=== PATIENT | male | born 1945 | race American Indian/Alaskan Native ===

== ENCOUNTER 2017-10-15 07:27 | Day surgery (SDC) | payer MEDICARE, OTHER ==
[2017-10-15] MEDS ORDERED: Lactated Ringer's 1,000 ML IV ONE (08:30)
[2017-10-15 09:09] VITALS: BMI 25.2
[2017-10-15] MEDS ORDERED: Propofol 10 mg/ml Inj (20 ML) ONE (09:57)
[2017-10-15 10:17] VITALS: PULSE 75; TEMP 98; O2SAT 100
[2017-10-15 10:29] VITALS: BP 114/68; RESP 18
== END 2017-10-15 10:30 | disposition home or self-care (01) ==
LOC: H.ENDO 07:27
PROVIDERS: ATTEND Internal Medicine Gastroenterology
DX: R10.84 Generalized abdominal pain (principal); I25.10 Atherosclerotic heart disease of native coronary artery without angina pectoris; I11.0 Hypertensive heart disease with heart failure; I50.9 Heart failure, unspecified; Z21 Asymptomatic human immunodeficiency virus [HIV] infection status; K64.8 Other hemorrhoids; K57.30 Diverticulosis of large intestine without perforation or abscess without bleeding
CPT/HCPCS: 45378; J2001; J2704; J7120